=== PATIENT | female | born 1970 | race Caucasian/White ===

== ENCOUNTER 2019-09-02 06:44 | Emergency (ER) | payer MEDICAID ==
[2019-09-02] MEDS ORDERED: Ondansetron 4 MG Tab.DIS PO ONE (06:50)
[2019-09-02] MEDS ORDERED: Meclizine 25 MG Tab PO ONE (07:05)
--- NOTE | 2019-09-02 07:25 | EDM.PDOC ---
ED HPI GENERAL MEDICAL PROBLEM - General Chief Complaint: General Stated Complaint: head and heart pounding, dizzy, nausea Time Seen by Provider: 09/02/19 07:05 Source of Information: Reports: Patient History Limitations: Reports: No Limitations - History of Present Illness INITIAL COMMENTS - FREE TEXT/NARRATIVE: Patient presented to the Ed because of cough and cold symptoms. There is no associated fever or chills, but c/o nausea and diziiness which she described as spinning sensation. - Related Data Allergies Allergy/AdvReac Type Severity Reaction Status Date / Time hydrocodone Allergy Hives Verified 09/02/19 07:12 oxycodone [Oxycodone] Allergy Hives Verified 09/02/19 07:12 Home Meds: Home Meds Aspirin 81 mg PO BEDTIME 03/20/18 [History] Cholecalciferol (Vitamin D3) [Vitamin D] 5,000 unit PO DAILY 03/20/18 [History] Clopidogrel Bisulfate [Clopidogrel] 75 mg PO BEDTIME 03/20/18 [History] Ferrous Sulfate [Iron] 325 mg PO DAILY 03/20/18 [History] Fluticasone/Salmeterol [Fluticasone-Salmeterol 113-14 MCG Powder Inh] 1 inh INH DAILY 03/20/18 [History] Montelukast [Singulair] 10 mg PO BEDTIME 03/20/18 [History] Potassium Chloride 20 meq PO BID #30 tablet.er 03/20/18 [Rx] Rosuvastatin [Crestor] 20 mg PO BEDTIME 03/20/18 [History] Meclizine [Antivert] 50 mg PO Q6H PRN #15 tab 09/02/19 [Rx] Past Medical History - Past Health History Medical/Surgical History: Denies Medical/Surgical History Respiratory History: Reports: Asthma 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 Wears dentures Cardiovascular Surgical History: Reports: Other (See Below) Other Cardiovascular Surgeries/Procedures: aortic stent due to lower vascular issues Female Surgical History: Reports: Tubal Ligation Social & Family History - Family History Family Medical History: Noncontributory - Caffeine Use Caffeine Use: Reports: Coffee, Soda ED ROS GENERAL - Review of Systems Review Of Systems: See Below Constitutional: Reports: No Symptoms HEENT: Reports: No Symptoms Respiratory: Reports: No Symptoms Cardiovascular: Reports: No Symptoms Endocrine: Reports: No Symptoms GI/Abdominal: Reports: Nausea. Denies: Vomiting Musculoskeletal: Reports: No Symptoms Skin: Reports: No Symptoms Neurological: Reports: No Symptoms Psychiatric: Reports: No Symptoms ED EXAM, GENERAL - Physical Exam Exam: See Below Exam Limited By: No Limitations General Appearance: Alert, No Apparent Distress Eye Exam: Bilateral Eye: PERRL Ears: Normal External Exam, Normal Canal Nose: Nasal Drainage Throat/Mouth: Normal Inspection, Normal Lips, Normal Teeth Head: Atraumatic, Normocephalic Neck: Normal Inspection, Supple, Non-Tender Respiratory/Chest: No Respiratory Distress, Lungs Clear, Normal Breath Sounds Cardiovascular: Normal Peripheral Pulses, Regular Rate, Rhythm, No Edema, No Gallop GI/Abdominal: Normal Bowel Sounds, Soft, Non-Tender, No Organomegaly Back Exam: Normal Inspection, Full Range of Motion Course - Vital Signs Text/Narrative:: EKG-NSR Zofran ODT 4 mg Meclizine 25 mg po x1 - Orders/Labs/Meds Meds: Medications Discontinued Medications Generic Name Dose Route Start Last Admin Trade Name Freq PRN Reason Stop Dose Admin Meclizine HCl 25 mg 09/02/19 07:05 09/02/19 07:05 Antivert PO 09/02/19 07:06 25 mg ONETIME ONE Administration Ondansetron HCl 4 mg 09/02/19 06:50 09/02/19 06:50 Zofran Odt PO 09/02/19 06:51 4 mg ONETIME ONE Administration Departure - Departure Time of Disposition: 07:25 Disposition: Home, Self-Care 01 Condition: Good Clinical Impression: URI (upper respiratory infection), BPV (benign positional vertigo) - Discharge Information Prescriptions: Meclizine [Antivert] 50 mg PO Q6H PRN #15 tab PRN Reason: vertigo Instructions: Viral Respiratory Infection, [id number], Benign Positional Vertigo Forms: ED Department Discharge Additional Instructions: please read discharge instructions on URI and BPF increase oral fluids meclizine 50 mg every 6 hours for 2 days then take it as needed Follow up as needed Sepsis Event Note - Evaluation Sepsis Screening Result: No Definite Risk - Focused Exam Date Exam was Performed: 09/02/19 Time Exam was Performed: 07:26
[2019-09-06 20:16] VITALS: BP 149/88; PULSE 79
== END 2019-09-02 07:40 | disposition home or self-care (01) ==
LOC: FB.ED 06:44
DX: J06.9 Acute upper respiratory infection, unspecified (principal); H81.10 Benign paroxysmal vertigo, unspecified ear; Z88.5 Allergy status to narcotic agent; Z79.82 Long term (current) use of aspirin; Z79.899 Other long term (current) drug therapy; J45.909 Unspecified asthma, uncomplicated
CPT/HCPCS: 93005; 99284-25; A9270-GY

== ENCOUNTER 2020-03-03 13:30 | Emergency (ER) | payer MEDICAID ==
[2020-03-03] MEDS ORDERED: diphenhydrAMINE 50 MG/ML SDV IVPUSH ONE (13:50)
[2020-03-03] MEDS ORDERED: Famotidine 20 MG/2 ML SDV IVPUSH ONE (13:50)
[2020-03-03] MEDS ORDERED: EPINEPHrine 1 MG/ML SDV SUBCUT ONE (13:50)
[2020-03-03] MEDS ORDERED: methylPREDNISolone Sodium Succinate 125 MG/2 ML SDV IVPUSH ONE (14:00)
[2020-03-03] MEDS ORDERED: Famotidine/Normal Saline 20 MG in Premix Bag 1 BAG IV ONE (14:22)
--- NOTE | 2020-03-03 14:38 | EDM.PDOC ---
ED HPI GENERAL MEDICAL PROBLEM - General Time Seen by Provider: 03/03/20 13:30 Source of Information: Reports: Patient History Limitations: Reports: No Limitations - History of Present Illness INITIAL COMMENTS - FREE TEXT/NARRATIVE: c/o hives pt outside, stung on RUE below shoulder laterally by a black insect has spring allergies, takes Benadryl but no Rx meds no other h/o of allergies or hayfever itching all over with small welts no cough, no sob, no n/v, no cp, normal voice - Related Data Allergies Allergy/AdvReac Type Severity Reaction Status Date / Time hydrocodone Allergy Hives Verified 09/02/19 07:12 oxycodone [Oxycodone] Allergy Hives Verified 09/02/19 07:12 Home Meds: Home Meds Aspirin 81 mg PO BEDTIME 03/20/18 [History] Clopidogrel Bisulfate [Clopidogrel] 75 mg PO BEDTIME 03/20/18 [History] Fluticasone/Salmeterol [Fluticasone-Salmeterol 113-14 MCG Powder Inh] 1 inh INH DAILY 03/20/18 [History] Montelukast [Singulair] 10 mg PO BEDTIME 03/20/18 [History] Rosuvastatin [Crestor] 30 mg PO BEDTIME 03/20/18 [History] Alirocumab [Praluent Pen] 75 mg SQ Q14D 09/02/19 [History] EPINEPHrine [Adrenaclick] 0.3 mg IJ DAILY PRN #2 ml 03/03/20 [Rx] Famotidine 20 mg PO DAILY #7 tablet 03/03/20 [Rx] Loratadine 10 mg PO DAILY #7 tablet 03/03/20 [Rx] Potassium Chloride 20 meq PO BID #6 tablet.er 03/03/20 [Rx] predniSONE 20 mg PO DAILY #9 tab 03/03/20 [Rx] Past Medical History - Past Health History Medical/Surgical History: Denies Medical/Surgical History Cardiovascular History: Reports: High Cholesterol, Hypertension Respiratory History: Reports: Asthma Other Respiratory History: Chronic smoker. 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 Wears dentures Cardiovascular Surgical History: Reports: Other (See Below) Other Cardiovascular Surgeries/Procedures: aortic stent due to lower vascular issues Female Surgical History: Reports: Tubal Ligation Social & Family History - Family History Family Medical History: Noncontributory - Caffeine Use Caffeine Use: Reports: Coffee, Soda ED ROS GENERAL - Review of Systems Review Of Systems: See Below Constitutional: Reports: No Symptoms HEENT: Reports: No Symptoms Respiratory: Reports: No Symptoms Cardiovascular: Reports: No Symptoms Endocrine: Reports: No Symptoms GI/Abdominal: Reports: No Symptoms : Reports: No Symptoms Musculoskeletal: Reports: No Symptoms Skin: Reports: Pruritis, Erythema, Urticaria. Denies: Diaphoresis Neurological: Reports: No Symptoms Psychiatric: Reports: No Symptoms Hematologic/Lymphatic: Reports: No Symptoms Immunologic: Reports: No Symptoms ED EXAM, SKIN/RASH Exam: See Below Exam Limited By: No Limitations General Appearance: Alert, WD/WN, Mild Distress Eye Exam: Bilateral Eye: EOMI Ears: Normal External Exam, Hearing Grossly Normal Nose: Normal Inspection, Normal Mucosa, No Blood Throat/Mouth: Normal Inspection, Normal Teeth, Normal Gums, Normal Oropharynx, Normal Voice, No Airway Compromise, Other (mild swell of lips) Head: Atraumatic, Normocephalic Neck: Normal Inspection, Supple, Non-Tender, Full Range of Motion. No: Lymphadenopathy (R), Lymphadenopathy (L) Respiratory/Chest: No Respiratory Distress, Lungs Clear, Normal Breath Sounds, No Accessory Muscle Use, Chest Non-Tender Cardiovascular: No Edema, No Murmur, Tachycardia, Other (regular, mild tachy) GI/Abdominal: Normal Bowel Sounds, Soft, Non-Tender, No Distention Back Exam: Normal Inspection, Full Range of Motion Extremities: Normal Range of Motion, Non-Tender, No Pedal Edema Neurological: Alert, Oriented, CN II-XII Intact, Normal Cognition, No Motor/Sensory Deficits Psychiatric: Anxious Skin: Other (skin red and flushed throughtout, small welts of 7.5 x 3 mm generalized, mainly ext, face not puffy, voice normal, moderate anxiety with no compromise ) Lymphatic: No Adenopathy Course - Orders/Labs/Meds Labs: Laboratory Tests 03/03/20 03/03/20 Range/Units 14:41 14:41 WBC 8.7 (4.5-12.0) X10-3/uL RBC 4.52 (3.23-5.20) x10(6)uL Hgb 14.6 (11.5-15.5) g/dL Hct 42.9 (30.0-51.3) % MCV 95.0 (80-96) fL MCH 32.2 (27.7-33.6) pg MCHC 33.9 (32.2-35.4) g/dL RDW 12.7 (11.5-15.5) % Plt Count 236 (125-369) X10(3)uL MPV 8.3 (7.4-10.4) fL Neut % (Auto) 58.3 (46-82) % Lymph % (Auto) 33.5 (13-37) % [place] % (Auto) 6.2 (4-12) % Eos % (Auto) 2 (1.0-5.0) % Baso % (Auto) 0 (0-2) % Neut # (Auto) 5.2 (1.6-8.3) # Lymph # (Auto) 2.9 (0.6-5.0) # [place] # (Auto) 0.5 (0.0-1.3) # Eos # (Auto) 0.1 (0.0-0.8) # Baso # (Auto) 0.0 (0.0-0.2) # Sodium 136 (135-145) mmol/L Potassium 3.1 L (3.5-5.3) mmol/L Chloride 100 (100-110) mmol/L Carbon Dioxide 24 (21-32) mmol/L BUN 16 (7-18) mg/dL Creatinine 0.9 (0.55-1.02) mg/dL Est Cr Clr Drug Dosing TNP Estimated GFR (MDRD) > 60 (>60) BUN/Creatinine Ratio 17.8 (9-20) Glucose 210 H (80-116) mg/dL Calcium 9.2 (8.6-10.2) mg/dL Total Bilirubin 0.5 (0.1-1.3) mg/dL AST 25 D (5-25) IU/L ALT 27 D (12-36) U/L Alkaline Phosphatase 65 (56-112) IU/L Total Protein 7.3 (6.0-8.0) g/dL Albumin 3.8 (3.5-5.2) g/dL Globulin 3.5 g/dL Albumin/Globulin Ratio 1.1 Meds: Medications Discontinued Medications Generic Name Dose Route Start Last Admin Trade Name Freq PRN Reason Stop Dose Admin Diphenhydramine HCl 50 mg 03/03/20 13:50 03/03/20 14:00 Benadryl IVPUSH 03/03/20 13:51 50 mg ONETIME ONE Administration Epinephrine HCl 0.3 mg 03/03/20 13:50 03/03/20 14:00 Adrenalin SUBCUT 03/03/20 13:51 0.3 mg ONETIME ONE Administration Famotidine 20 mg 03/03/20 13:50 03/03/20 14:23 Pepcid IVPUSH 03/03/20 13:51 Not Given ONETIME ONE Famotidine 20 mg/ Premix 50 mls @ 200 mls/hr 03/03/20 14:22 03/03/20 14:26 IV 03/03/20 14:23 200 mls/hr ONETIME ONE Administration Methylprednisolone Sodium Succinate 125 mg 03/03/20 14:00 03/03/20 14:00 Solu-Medrol IVPUSH 03/03/20 14:01 125 mg ONETIME ONE Administration - Re-Assessments/Exams Free Text/Narrative Re-Assessment/Exam: 03/03/20 15:39 pt stated she felt much better 15 min after meds here welts gone and redness almost completely gone altho both reoccurred slightly before d/c no airway or pulmonary issues during entire time in ED pt on Singulair altho not sure why, denies asthma or prior anaphylaxis is on inhalers for COPD medically stable, has and 2 older children at home, pt agrees to close f/u and to return to ED if feeling worse Departure - Departure Time of Disposition: 15:25 Disposition: Home, Self-Care 01 Condition: Good Clinical Impression: Hives, Bee sting-induced anaphylaxis, Hypokalemia, Hyperglycemia - Discharge Information *PRESCRIPTION DRUG MONITORING PROGRAM REVIEWED*: Not Applicable *COPY OF PRESCRIPTION DRUG MONITORING REPORT IN PATIENT ROYCE: Not Applicable Prescriptions: EPINEPHrine [Adrenaclick] 0.3 mg IJ DAILY PRN #2 ml PRN Reason: Hives Famotidine 20 mg PO DAILY #7 tablet Loratadine 10 mg PO DAILY #7 tablet Potassium Chloride 20 meq PO BID #6 tablet.er predniSONE 20 mg PO DAILY #9 tab Instructions: Hives, Anaphylactic Reaction, Adult Referrals: Na Ramirez [employer]ER [Primary Care Provider] - Additional Instructions: Continue your current medications. Take prednisone 20 mg 2 tabs today and tomorrow, then 1 tab daily for 5 more d ays. Take loratadine 10 mg 1 tab daily for 7 days beginning tomorrow. Take famotidine 20 mg 1 tab daily for 7 days beginning tomorrow. Take benadryl 25 mg 2 tabs with meals and bedtime for 2 days, longer if needed. Have an epinephrine self-injecting pen with you at all times, give yourself an injection if you have recurrence of symptoms and come directly to the hospital. Use cool compresses for 10 minutes every hour as needed for itching. Have some with you at all times for the next 12 hours. Rest for the next 12 hours. If your symptoms get worse, return to the Emergency Department. Otherwise, see your doctor in 3 days for further recommendations. See an public health technician in the next 1-2 weeks.
[2020-03-03] MEDS ORDERED: Loratadine 10 MG Tab PO ONE (15:38)
[2020-03-03 19:35] VITALS: BP 124/110; PULSE 95
== END 2020-03-03 15:40 | disposition home or self-care (01) ==
LOC: FB.ED 13:30
DX: T63.441A Toxic effect of venom of bees, accidental (unintentional), initial encounter (principal); T78.2XXA Anaphylactic shock, unspecified, initial encounter; E87.6 Hypokalemia; R73.9 Hyperglycemia, unspecified; L50.9 Urticaria, unspecified; R00.0 Tachycardia, unspecified; I10 Essential (primary) hypertension; E78.00 Pure hypercholesterolemia, unspecified; J45.909 Unspecified asthma, uncomplicated; F17.200 Nicotine dependence, unspecified, uncomplicated; Z88.5 Allergy status to narcotic agent; Z79.82 Long term (current) use of aspirin; Z79.02 Long term (current) use of antithrombotics/antiplatelets; Z79.899 Other long term (current) drug therapy
CPT/HCPCS: 36415; 80053; 85025; 96372; 96374; 96375; 99283; J0171; J1200; J2930

== ENCOUNTER 2022-07-11 10:59 | Emergency (ER) | payer MEDICAID ==
[2022-07-11 11:21] VITALS: BP 162/104; PULSE 78
[2022-07-11] MEDS ORDERED: Ketorolac 30 MG/ML SDV IVPUSH ONE (11:31)
[2022-07-11] MEDS ORDERED: Metoclopramide 10 MG/2 ML SDV IVPUSH ONE (11:31)
[2022-07-11 11:59] LABS: ESTIMATED GFR 113 mL/min (>60)
[2022-07-11] MEDS ORDERED: diphenhydrAMINE 50 MG/ML SDV IVPUSH ONE (12:34)
[2022-07-11] MEDS ORDERED: Gadoteridol 279.3 MG/ML 10 ML SDV IVPUSH ONE (13:50)
== END 2022-07-11 14:55 | disposition home or self-care (01) ==
LOC: FB.ED 10:59
DX: R51.9 Headache, unspecified (principal); E78.00 Pure hypercholesterolemia, unspecified; I10 Essential (primary) hypertension; J44.9 Chronic obstructive pulmonary disease, unspecified; F17.200 Nicotine dependence, unspecified, uncomplicated; Z79.82 Long term (current) use of aspirin; Z79.899 Other long term (current) drug therapy; Z88.5 Allergy status to narcotic agent
CPT/HCPCS: 36415; 70450; 70553; 80053; 81001; 85025; 86140; 96374; 96375; 99283; 99284-25; A9579; J1885; J2765

== ENCOUNTER 2022-07-28 13:52 | Emergency (ER) | payer MEDICAID | END 2022-07-28 14:01 | disposition left against medical advice (07) | LOC: FB.ED 13:52 | DX: Z53.21 Procedure and treatment not carried out due to patient leaving prior to being seen by health care provider (principal) ==